=== PATIENT | male | born 1980 ===

== ENCOUNTER 2018-05-29 06:10 | Emergency (ER) | payer SELFPAY ==
[2018-05-29] MEDS ORDERED: Fentanyl 100 MCG/2 ML VIAL ONE (06:20)
[2018-05-29] MEDS ORDERED: Adacel (T-DAP) 0.5 ML VIAL ONE (06:35)
[2018-05-29 06:54] LABS: #Basophils 0.1 thou/uL (0.0-0.2); #Lymphocytes 1.9 thou/uL (1.20-3.40); #Monocytes 0.6 thou/uL (0.11-0.59); #Neutrophils 11.4 thou/uL (1.40-6.50); %Basophils 0.7 % (0.0-1.0); %Eosinophils 0.1 % (0.0-10.0); %Lymphocytes 13.4 % (21.0-51.0); %Monocytes 4.1 % (0.0-10.0); %Neutrophils 81.8 % (42.0-75.0); Hemoglobin 10.8 g/dL (14.0-18.0); Mean Corpuscular HGB CONC 31.9 g/dL (32.0-36.0); Mean Corpuscular Hemoglobin 27.6 pg (27.0-31.0); Mean Corpuscular Volume 86.6 fL (78.0-98.0); Platelet Count 224 thou/uL (130-400); RBC Distribution Width 13.2 % (11.5-14.5); Red Blood Cell (RBC) Count 3.93 mill/uL (4.70-6.10); White Blood Cell (WBC) Count 13.9 thou/uL (4.8-10.8)
[2018-05-29] MEDS ORDERED: Midazolam HCl 10 mg/2 ml Vial ONE (06:56)
[2018-05-29 06:58] LABS: INR-International Normal Ratio 1.3; PTT 26.3 SEC (22.9-36.1); Prothrombin Time 16.2 SEC (12.0-14.7)
[2018-05-29] MEDS ORDERED: Sodium Chloride 0.9% 1,000 ML BAG ONE (07:00)
[2018-05-29 07:09] LABS: ALT (SGPT) 13 U/L (8-55); AST (SGOT) 16 U/L (5-34); Albumin 3.6 g/dL (3.5-5.0); Alcohol 126 mg/dL (Less than 10); Alkaline Phosphatase 76 U/L (40-150); Anion Gap 24 mmol/L (10-20); BUN (Urea Nitrogen) 9 mg/dL (8.9-20.6); Bilirubin, Total 0.3 mg/dL (0.2-1.2); Calc. Creatinine Clearance 0 mL/min (70-130); Calcium 8.7 mg/dL (7.8-10.44); Carbon Dioxide 16 mmol/L (22-29); Chloride 108 mmol/L (98-107); Estimated GFR-MDRD 67; Globulin 2.6 g/dL (2.4-3.5); Glucose 163 mg/dL (70-105); Potassium 3.5 mmol/L (3.5-5.1); Protein, Total 6.2 g/dL (6.0-8.3); Sodium 144 mmol/L (136-145)
[2018-05-29 07:24] LABS: Bilirubin Negative (Negative); Blood, Urine Trace (Negative); Clarity Clear (Clear); Glucose, Urine (Dipstick) Negative (Negative); Leukocyte Small (Negative); Nitrite Negative (Negative); Protein, Urine (Dipstick) Negative (Neg-Trace); Urobilinogen 0.2 mg/dL (0.2-1.0); pH, Urine 5.5 (5.0-9.0)
[2018-05-29 07:25] LABS: Bacteria/HPF Rare-Few HPF (None Seen); RBC/HPF 0-3 HPF (0-3); Specific Gravity, Urine 1.002 (1.002-1.036); Squamous Epithelial 0-3 HPF (0-3); WBC/HPF 0-3 HPF (0-3)
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
== END 2018-05-29 07:06 | disposition short-term general hospital (02) ==
LOC: MADERS 06:10
DX: T79.4XXA Traumatic shock, initial encounter (principal); S51.001A Unspecified open wound of right elbow, initial encounter; Z23 Encounter for immunization; W26.0XXA Contact with knife, initial encounter
CPT/HCPCS: 31500; 36430; 51702; 71045; 80053; 80307; 81003; 81015; 85025; 85610; 85730; 86850; 86900; 86901; 90471; 90715; 94760; 96374; G0390; J2250; J3010; J7050; P9016